=== PATIENT | male | born 1945 | race Caucasian/White ===

== ENCOUNTER 2024-12-17 13:00 | Outpatient (RCR) | payer MEDICARE, SELFPAY | END 2024-12-20 14:00 | disposition home or self-care (01) | PROVIDERS: PCP Family Medicine; Visit Provider Orthopaedic Surgery | DX: M17.11 Unilateral primary osteoarthritis, right knee (principal); Z51.89 Encounter for other specified aftercare | CPT/HCPCS: 97110; 97116; 97140; 97161; 97535 ==

== ENCOUNTER 2025-03-08 11:15 | Outpatient (RCR) | payer MEDICARE, SELFPAY | END 2025-03-26 17:26 | disposition home or self-care (01) | PROVIDERS: PCP Family Medicine; Visit Provider Orthopaedic Surgery | DX: M17.12 Unilateral primary osteoarthritis, left knee (principal); Z51.89 Encounter for other specified aftercare | CPT/HCPCS: 97110; 97140; 97161; 97530; 97535 ==